=== PATIENT | female | born 1970 | race African-American/Black ===

== ENCOUNTER 2021-10-09 08:15 | Emergency (ER) | payer OTHER ==
[~2021-10-09] VITALS: Ht 165.1 cm; Wt 64.0 kg
[2021-10-09] MEDS ORDERED: KETOROLAC 60MG/2ML VIAL IM ONE (08:45)
[2021-10-09 09:10] VITALS: BP 105/64
[2021-10-09] MEDS ORDERED: HYDR-4001 MT (09:21)
== END 2021-10-09 09:46 | disposition home or self-care (01) ==
LOC: ER 08:56
DX: S42.292A Other displaced fracture of upper end of left humerus, initial encounter for closed fracture (principal); W18.39XA Other fall on same level, initial encounter; Y93.89 Activity, other specified; Y92.89 Other specified places as the place of occurrence of the external cause; Y99.8 Other external cause status; E78.00 Pure hypercholesterolemia, unspecified; I10 Essential (primary) hypertension
CPT/HCPCS: 73030; 96372; 99283; J1885